=== PATIENT | male | born 1995 | race Two or more races ===

== ENCOUNTER 2024-06-20 10:04 | Emergency (ER) | payer OTHER, SELFPAY ==
[2024-06-20 10:27] VITALS: BP 154/90; PULSE 76; RESP 19; TEMP 37.1; O2SAT 96; BMI 33.9
--- NOTE | 2024-06-20 10:46 | PD.EDHAND ---
Upper Extremity Injury RME/HPI General Chief Complaint: Hand/Wrist Problems Stated Complaint: RIGHT INDEX FINGER INJURY LACERATION Time Seen by Provider: 06/20/24 10:09 Source: patient Arrival date/time: 06/20/24 10:04 This is a 28-year-old male presents to the emergency department with complaints of a finger injury while at work. States he had his second digit right hand smashed onto metal plates causing a laceration to the distal aspect of his index finger. Unknown DT vaccination status. Denies any other injuries. Mode of arrival: ambulatory Limitations: no limitations Related Data Previous Rx's ?Medication ?Instructions ?Recorded cephalexin 500 mg capsule 500 mg PO TID #15 caps 06/22/24 Allergies Allergy/AdvReac Type Severity Reaction Status Date / Time No Known Allergies Allergy Verified 06/20/24 10:08 Review of Systems Review of Systems Systems Reviewed: All systems reviewed, normal except as documented Narrative Review of Systems: Gen: No fever, no chills, no weight loss EYES: No discharge, no visual changes, no pain HEENT: No ear pain, no congestion, no sore throat PULM: No shortness of breath, no cough, no congestion CV: No chest pain, no dyspnea on exertion, no palpitations GI: No nausea, no vomiting, no diarrhea, no pain, no constipation : No frequency, no urgency,? no dysuria Musc/skel: +2nd digit pain and lac, no back pain Skin: No rash? ED Exam General Limitations: Present no limitations General appearance: Present alert and in no apparent distress Head Head exam: Present atraumatic Eye Eye exam: Present normal appearance, PERRL and EOMI ENT ENT exam: Present normal exam, normal oropharynx and mucous membranes moist Neck Neck exam: Present normal inspection, full ROM and trachea midline Chest Chest inspection: Present normal inspection and symmetric chest wall rise Respiratory Respiratory exam: Present normal lung sounds bilaterally Cardiovascular Cardiovascular exam: Present regular rate, normal rhythm and normal heart sounds Abdominal Exam Abdominal exam: Present soft and normal bowel sounds; Absent distention, tenderness or guarding Extremities Exam Extremities exam: Present full ROM Expanded Upper Extremity Exam Shoulder exam: Present normal inspection Arm exam: Present normal inspection Elbow exam: Present normal inspection Hand exam: Present tenderness, swelling and laceration Hand L/R front image:  1. avulsion (Distal skin avulsion second phalanx, tender palpation. CMS intact) Back Exam Back exam: Present normal inspection and full ROM Neurological Exam Neurological exam: Present alert, oriented X3 and CN II-XII intact Psychiatric Psychiatric exam: Present normal affect and normal mood Skin Skin exam: Present warm, dry, intact and normal color Course Quality Measures none Orders Category Date Time Status Wound Care NOW Care 06/20/24 10:37 Completed XR finger RT min 2V Stat Exams 06/20/24 11:25 Completed Lidocaine 1% 20 ml [Xylocaine 1% 20 ML] Med 06/20/24 10:37 Discontinued 10 ml INFL X1 ONE TET,DIP/PERT AC (Adult)-Tdap [Boostrix Adult (Tdap) Med 06/20/24 10:37 Discontinued Vacc] 0.5 ml IMI .ONCE ONE Vital Signs Vital signs: Vital Signs Temperature 98.8 F 06/20/24 10:27 Pulse Rate 76 06/20/24 10:27 Respiratory Rate 19 06/20/24 10:27 Blood Pressure 154/90 H 06/20/24 10:27 Pulse Oximetry (%) 96 06/20/24 10:27 Oxygen Delivery Method Room Air 06/20/24 10:27 Procedures -ED Laceration Laceration 1: Site: hand and other (rt index distal pulp ) Side (If applicable): right Size (cm): 1 Description: flap and irregular Depth: simple, single layer Local Anesthetic: lidocaine 1% Amount of anesthesia used (mL): 5 Pre-repair: irrigated extensively Skin layer closed with: nylon Size (cm): 4-0 Number of sutures: 5 Technique: simple, interrupted Extremity Injury MDM Narrative MDM Narrative:: Patient's wounds cleanse and repair see procedure note. No evidence of fracture on x-ray. Antibiotics sent to pharmacy. Advised to follow-up with Worker's Comp. strict ER precautions Patient data External records reviewed:: [facility] previous records Clinical information provided by:: patient Social determinants that could affect healthcare access:: none Patient has the following chronic illnesses:: no How is presenting disease/condition affected by chronic disease/condition?: no chronic disease Evaluation data The following diagnostics were reviewed and interpreted by me:: radiology exam(s) Lab and/or radiology exams considered but not ordered:: no Interpretation Summary: Examination: Fingers, right hand second digit 3 views Technique: AP, oblique, lateral views right hand second digit 3 views. Exam date and time: June 20, 2024 1112 hours INDICATIONS: Injury to the hand today with second digit pain FINDINGS: No acute fracture Soft tissue swelling about the distal phalanx second digit No cortical bone destruction No opaque foreign body IMPRESSION: No acute fracture Medications / Prescriptions Medications or Prescriptions considered but not ordered:: no Medication administrations:: Medication Administration History Discontinued Medications Diphtheria/Tetanus/Acell Pertussis (Diphth,Pertuss(Acell),Tet Vac 0.5 Ml Syr- Adult) 0.5 ml IMi .ONCE ONE Stop: 06/20/24 10:38 Last Admin: 06/20/24 11:24 Dose: 0.5 ml Documented By: OA Lidocaine HCl (Lidocaine Hcl 1% 20 Ml Vial) 10 ml INFL X1 ONE Stop: 06/20/24 10:38 Last Admin: 06/20/24 11:25 Dose: 10 ml Documented By: LEONID All medications administered and effective Consultations Consultation(s) initiated? (list below): No Diagnosis Upper Extremity Injury Differential Diagnosis: finger sprain, dislocation of finger, fracture of hand and other (finger contusion, finger fracture,) Most likely diagnosis given after review of the tests above:: Tuft fracture, second digit laceration Admission Indicated Admission indicated?: not indicated Admission Request Was there a request for admission?: No Disposition Plan Disposition Plan: Discharge Discharge Attestation Discharge Attestation: The patient and all family members were given an opportunity to ask questions and understood the discharge instructions. Discharge instructions specifically effects, indications for sooner follow up or return to the emergency department, and the expected course of current diagnosis. Patient condition: Stable Discharge Plan Plan Patient Disposition: HOME (Self Care) Patient condition on transfer: Stable Prescriptions/Referrals Prescriptions/Med Rec: New cephalexin 500 mg capsule 500 mg PO TID Qty: 15 0RF Referrals: No Primary/Family,Physician [Primary Care Provider] - In 1 week Problem List Clinical Impression: Finger sprain, Laceration Patient/Caregiver Discharge Instructions Discharge Activity: activity as tolerated Education Materials: ED Finger Sprain, ED Laceration Hand with ... Additional Instructions: Please follow-up with your primary doctor for suture care Please follow up with Primary Doctor in 7-10 day for suture removal. Please return to ER if theres is any sign of infection. Please keep wound clean and dry. Take antibiotics as directed. Print Language: Tajik Stand Alone Forms: [employer] Patient Portal Info Letter PA/LINUX SYSTEM ADMINISTRATOR Supervising Physician PA/LINUX SYSTEM ADMINISTRATOR Supervising Physician: Dr. Pack
[2024-06-20] MEDS: DIPHTH,PERTUSS(ACELL),TET VAC 0.5 ML SYR- ADULT IMi (11:24)
[2024-06-20] MEDS: LIDOCAINE HCL 1% 20 ML VIAL 10 ML INFL (11:25)
--- NOTE | 2024-06-20 11:25 | XR_ITS ---
Examination: Fingers, right hand second digit 3 views Technique: AP, oblique, lateral views right hand second digit 3 views. Exam date and time: June 20, 2024 1112 hours INDICATIONS: Injury to the hand today with second digit pain FINDINGS: No acute fracture Soft tissue swelling about the distal phalanx second digit No cortical bone destruction No opaque foreign body IMPRESSION: No acute fracture
== END 2024-06-20 12:40 | disposition home or self-care (01) ==
PROVIDERS: Emergency Provider Emergency Medicine
DX: S61.210A Laceration without foreign body of right index finger without damage to nail, initial encounter (principal); S63.610A Unspecified sprain of right index finger, initial encounter; W31.1XXA Contact with metalworking machines, initial encounter; Y99.0 Civilian activity done for income or pay; Z23 Encounter for immunization
CPT/HCPCS: 12001; 73140; 90471; 90715; 99283; J3490